=== PATIENT | female | born 1955 ===

== ENCOUNTER → 2019-12-01 | Outpatient (CLI) | payer OTHER ==
[~2019-12-01] VITALS: Ht 170.2 cm; Wt 105.2 kg
[~2019-12-01] MED LIST: APAP650 PO; CARVEDILOL25 MG PO; CYCLOBENZAPRINE5 MG PO; DILTIAZEM 24HR360 M1 PO; GLUCOPHAGE1000 MG PO; GLUCOTROL5 MG PO; HYDROCHLOROTHIA25 M2 PO; HYDROCODON-ACE1 EAC7 PO; LIPITOR 20 MG T20 M1 PO; TRAMADOL 50 MG50 MG PO; ZYLOPRIM300 MG PO
[2019-12-01 14:37] VITALS: BP 147/79
--- NOTE | 2019-12-01 15:08 | NUR ---
Pain Clinic Assessment: 1. History of Osteoarthritis: Not Applicable History of Rheumatoid Arthritis: Not Applicable 2. Height: 5 ft. 7 in. 170.2 cm. Weight: 232.0 lb. oz. 105.235 kg. Patient's BMI: 36.3 3. Vital Signs: BP: 147/79 Pulse: 65 Resp: 14 Temp: 02 Sat: 100 ECG Mon: 4. Pain Intensity: 5 5. Fall Risk: Dizziness: N Needs help standing or walking: N Fallen in the last 3 months: N Fall risk comments: 6. Patient on Blood Thinner: None 7. History of Hypertension: Y 8. Opioid Therapy greater than 6 weeks: Y Opiate Contract Signed: 9. Risk Assessment Tool Provided: 10. Functional Assessment Tool: 11. Recreational Drug Use: Never Drug Type: Tobacco Use: Former Smoker Tobacco Type: Cigarettes Amount or Packs/day: 1/2 How Many Years: Alcohol Use: No Frequency: Quant:
--- NOTE | 2019-12-15 15:46 | HPC ---
[facility] [place] [address] PAIN MANAGEMENT CONSULTATION Name: ROD CARO Room #: REG ALEXIS Head.#: [id number] Admission: 12/01/19 Attend Phys: Joe Whitfield MD Discharge: Date of : 53 Report #: [id number] THIS REPORT FOR: cc: GARY DERAS MD Physician not on staff Joe Whitfield MD ~ CC: MD Joe Butcher Physician staff DATE OF SERVICE: 12/01/2019 CHIEF COMPLAINT: Low back pain for a few years, she has had back pain since . 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 Housework, vacuuming, sweeping, all exacerbate her discomfort. Standing can be problematic as well. She has tried heat as well as rest. She has used tramadol and Flexeril for muscle spasms. She notes that the burning, aching discomfort in her back gets progressively worse the longer she stands. She has difficulty walking greater than a block. Housework for greater than a few minutes is problematic. Notes that her pain somewhat improved with use of medications as well as Tylenol. She rates her pain as a 5/10 today. Pain is generally across the lower portion of her back in the L4-L5 and L5-S1 areas. The patient states she has had physical therapy in the past with no long-term benefits. Denies any new bowel or bladder dysfunction. ALLERGIES: TIFFANIE INHIBITORS CAUSE ANGIOEDEMA. CURRENT MEDICATIONS: Metformin 1000 mg b.i.d., acetaminophen 500 mg 2 capsules t.i.d., Lipitor 20 mg, aspirin 325 mg, tramadol 50 mg 1 tablet as needed t.i.d., nortriptyline 10 mg, diltiazem 240 mg, Januvia 100 mg, hydrochlorothiazide 25 mg, cyclobenzaprine 5 mg, carvedilol 25 mg, allopurinol 300 mg, ibuprofen 400 mg. PAST MEDICAL HISTORY: Type 2 diabetes, hypertension, chronic back pain, gout, cervical cancer, hepatitis C positive in 2013, negative in 2015, did not receive treatment. PAST SURGICAL HISTORY: Knee replacement, left, 2018. Partial hysterectomy, cervical cancer. Still has ovaries. OCCUPATION: Disabled, has not worked for 10 years. REVIEW OF SYSTEMS: Generally good health, recent weight change, fatigue, [address] [address] PAIN MANAGEMENT CONSULTATION Name: ROD CARO Room #: REG [facility].#: [id number] Admission: 12/01/19 Attend Phys: Joe Whitfield MD Discharge: Date of : 53 Report #: [id number] weakness, wears glasses, non-insulin diabetes, excessive thirst, urination. LABORATORY DATA: L-spine 11/16/2019, lumbar spine 3 views. Reason for exam, chronic low back pain. L1 and L2 vertebral bodies are fused with partial obliteration of the disk space and minimal wedge configuration. There is minimal kyphotic angulation at L1-L2. Anterior subluxation of L4 on L5 with 3 mm is present. Remaining disk space height is well maintained. There are severe degenerative changes of the apophyseal joints throughout the lumbar spine. IMPRESSION: 1. 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 2. Grade 1 spondylolisthesis, L4/L5. Severe degenerative changes of the apophyseal joints throughout the lumbar spine. PAIN CLINIC ASSESSMENT AND PQRS: 1. History of osteoarthritis is noted in the patient's back. The patient is not being treated for rheumatoid arthritis. 2. Height 5 feet 7 inches, weight 232 pounds, BMI is 36.3. 3. Vital Signs: Blood pressure 147/79, pulse 65, respiratory rate is 14, room air saturation is 100%. 4. Pain intensity 5/10. 5. Fall history. The patient has not fallen in the last 3 months. 6. Blood thinner. The patient is not on a blood thinning medication. 7. Hypertension. The patient is being treated for hypertension. 8. Opioids greater than 6 weeks. The patient receives medications from her primary physician. 9. Risk assessment tool, low for opioid use. 10. Functional assessment tool, . 11. Recreational drug use: The patient denies. 12. Tobacco. The patient is a former smoker, smokes one-half pack of cigarettes from years. 13. Alcohol. The patient denies frequent use of alcoholic beverages. PHYSICAL EXAMINATION: GENERAL: The patient is a well-developed, well-nourished black female. Appears her stated age. She is alert and oriented x 3. Her affect is appropriate. Speech is fluent. HEENT: Normocephalic, atraumatic. Extraocular eye muscles intact. Sclerae nonicteric. Mucous membranes are moist. The patient is wearing a mask. NECK: Without JVD or adenopathy. HEART: Regular rate. LUNGS: Clear to auscultation. ABDOMEN: Protuberant. EXTREMITIES: Upper extremity muscle strength judged to be 5/5 for the major muscle groups in the upper extremity. The patient without significant [facility] [address] [place] [address] PAIN MANAGEMENT CONSULTATION Name: ROD CARO Room #: REG ALEXIS Melendez#: [id number] Admission: 12/01/19 Attend Phys: Joe Whitfield MD Discharge: Date of : 53 Report #: [id number] scoliosis, kyphosis or lordosis. Lumbar extension, left and right lateral rotation, left and right lateral bending were somewhat limited secondary to the patient's flexibility. She has pain and discomfort in the lower portion of her back. She has pain across the lower portion of the back at the lumbar area. Anterior and posterior spring tests are negative. Straight leg raise was negative. Palpation in the lumbar area near the paraspinous muscle areas cause some increased discomfort. Left and right lateral rotation cause some increased discomfort. Lumbar extension cause some increased low back discomfort. IMPRESSION: 1. Low back pain with arthritis in the apophyseal joints. 2. Type 2 diabetes. 3. Hypertension. 4. Chronic back pain. 5. Gout. 6. Cervical cancer. 7. Hepatitis C positive in 2013, negative in 2016, did not receive treatment. RECOMMENDATIONS: We discussed treatment options with the patient. At this juncture, she would like to continue on a conservative course. A script for hydrocodone 5/325 one p.o. t.i.d. have been written. The patient will note its efficacy. We have explained that opioid medications can be helpful initially. They can lose their efficacy as time goes on because of development of tolerance. We may consider gabapentin use in the future. We would like to thank you for letting us participate in her care. We hope she continues to improve. <ELECTRONICALLY SIGNED> By: Joe Whitfield MD 12/15/19 1546 [id number] MD SAÚL Orourke
== END ==
LOC: PAIN 06:49
PROVIDERS: ATTEND Anesthesiology Pain Medicine
DX: M47.816 Spondylosis without myelopathy or radiculopathy, lumbar region (principal); M43.16 Spondylolisthesis, lumbar region

== ENCOUNTER → 2020-01-26 | Outpatient (CLI) | payer OTHER ==
[~2020-01-26] VITALS: Ht 170.2 cm; Wt 105.1 kg
[~2020-01-26] MED LIST changes: +VOLTAREN GEL 1100 G1 TOP
[2020-01-26 10:56] VITALS: BP 160/91
--- NOTE | 2020-01-26 11:12 | NUR ---
Pain Clinic Assessment: 1. History of Osteoarthritis: Not Applicable History of Rheumatoid Arthritis: Not Applicable 2. Height: 5 ft. 7 in. 170.2 cm. Weight: 231.6 lb. oz. 105.053 kg. Patient's BMI: 36.3 3. Vital Signs: BP: 160/91 Pulse: 76 Resp: 16 Temp: 02 Sat: 99 ECG Mon: 4. Pain Intensity: 5 W/TYLENOL 5. Fall Risk: Dizziness: N Needs help standing or walking: N Fallen in the last 3 months: N Fall risk comments: 6. Patient on Blood Thinner: None 7. History of Hypertension: Y 8. Opioid Therapy greater than 6 weeks: Y Opiate Contract Signed: 9. Risk Assessment Tool Provided: 10. Functional Assessment Tool: 11. Recreational Drug Use: Never Drug Type: Tobacco Use: Former Smoker Tobacco Type: Amount or Packs/day: How Many Years: Alcohol Use: No Frequency: Quant:
--- NOTE | 2020-02-03 13:25 | HPC ---
[facility] [address] [place] [address] PAIN MANAGEMENT CONSULTATION Name: ROD CARO Room #: REG [facility].#: [id number] Admission: 01/26/20 Attend Phys: Joe Whitfield MD Discharge: Date of : 53 Report #: [id number] THIS REPORT FOR: cc: KYLEE DERAS MD Physician not on staff Joe Whitfield MD ~ CC: KYLEE Whitfield Physician staff DATE OF SERVICE: 01/26/2020 PRIMARY CARE PHYSICIAN: Dr. Kylee Deras. CHIEF COMPLAINT: Chronic low back pain. HISTORY: The patient is a 64-year-old female who has been referred to the pain clinic for evaluation. She continues to have pain in the lower portion of her back. The pain radiates down into the heel of her right foot. She continues to have back pain, which has been ongoing for many years since the . She describes it as constant, burning and aching. She rates it as 5/10. Pain is exacerbated with standing, walking, housework particularly sweeping. Notes that her medications as well as heat can be helpful. She has had physical therapy in the past. Denies any long-term benefits from that activity. ALLERGIES: TIFFANIE INHIBITORS CAUSE ANGIOEDEMA. CURRENT MEDICATIONS: Metformin 1000 mg b.i.d., Tylenol 500 mg 2 capsules t.i.d., Lipitor 20 mg, aspirin 325 mg, tramadol 50 mg 1 p.o. t.i.d., nortriptyline 10 mg, diltiazem 240 mg, Januvia 100 mg, hydrochlorothiazide 25 mg, cyclobenzaprine 5 mg, carvedilol 25 mg, allopurinol 300 mg, ibuprofen 400 mg. PAIN CLINIC ASSESSMENT AND PQRS: 1. The patient has osteoarthritic changes noted in her back. She is not being treated for rheumatoid arthritis. 2. Height 5 feet 7 inches, weight 231 pounds, BMI is 36. 3. Vital signs: Blood pressure 160/91, pulse 76, respiratory rate 16, room air saturation 99%. 4. Pain intensity is 5/10. 5. Fall history: The patient has not fallen in the last 3 months. 6. Blood thinner. The patient is not on a blood thinning medication. 7. Hypertension. The patient is being treated for hypertension. 8. Opioid therapy greater than 6 weeks. 9. Risk assessment tool. 10. Functional assessment tool, . [address] [address] PAIN MANAGEMENT CONSULTATION Name: ROD CARO Room #: REG CLI [facility]#: [id number] Admission: 01/26/20 Attend Phys: Joe Whitfield MD Discharge: Date of : 53 Report #: [id number] 11. Recreational drug use. The patient denies. 12. Tobacco: The patient is a former smoker. 13. Alcohol. PHYSICAL EXAMINATION: GENERAL: The patient is a well-developed, well-nourished black female. She appears her stated age. She is alert and oriented x 3. Her affect is appropriate. Speech is fluent. HEENT: Normocephalic, atraumatic. Extraocular eye muscles intact. Sclerae nonicteric. Mucous membranes, the patient is wearing a face cover. NECK: Without adenopathy or JVD. HEART: Regular. LUNGS: Clear to auscultation. ABDOMEN: Protuberant. EXTREMITIES: Upper extremity muscle strength judged to be 5/5 for the major muscle groups in the upper extremity. MUSCULOSKELETAL: The patient is without significant scoliosis, kyphosis or lordosis. The patient notes somewhat limited movement in flexibility in the lumbar area. Left and right lateral bending, left and right lateral rotation were somewhat limited. The patient has discomfort in her back. Complains of pain in the lower portion of her back. Anterior and posterior spring tests were negative. Straight leg raise were negative. Palpation of the lumbar area near the paraspinous muscles cause some increased discomfort. IMPRESSION: 1. Chronic low back pain with arthritis in the apophyseal joints. 2. Type 2 diabetes. 3. Hypertension. 4. Chronic back pain. 5. Gout. 6. Cervical cancer. 7. History of hepatitis C positive in 2013 and negative in 2016, did not receive treatment. RECOMMENDATIONS: We discussed treatment options with the patient. At this point, we will continue with the hydrocodone 5 mg 1 p.o. t.i.d. The patient is aware that opioid medications can become less effective as time goes on. This is because of development of tolerance. We will consider the use of gabapentin as an adjunct in the future. We would like to thank you for letting us participate in her care. <ELECTRONICALLY SIGNED> By: Joe Whitfield MD 02/03/20 1325 [id number] Joe Whitfield MD /PAUL
== END ==
LOC: PAIN 06:53
PROVIDERS: ATTEND Anesthesiology Pain Medicine
DX: C53.9 Malignant neoplasm of cervix uteri, unspecified (principal); G89.29 Other chronic pain; E11.9 Type 2 diabetes mellitus without complications; I10 Essential (primary) hypertension; M10.9 Gout, unspecified; Z86.19 Personal history of other infectious and parasitic diseases; Z88.8 Allergy status to other drugs, medicaments and biological substances; Z79.899 Other long term (current) drug therapy

== ENCOUNTER → 2020-03-29 | Outpatient (CLI) | payer OTHER ==
[~2020-03-29] VITALS: Ht 170.2 cm; Wt 107.1 kg
[~2020-03-29] MED LIST changes: +NORVASC2.5 M1 PO
[2020-03-29 09:27] VITALS: BP 156/78
--- NOTE | 2020-03-29 09:44 | NUR ---
Pain Clinic Assessment: 1. History of Osteoarthritis: Not Applicable History of Rheumatoid Arthritis: Not Applicable 2. Height: 5 ft. 7 in. 170.2 cm. Weight: 236.2 lb. oz. 107.140 kg. Patient's BMI: 37.0 3. Vital Signs: BP: 156/78 Pulse: 86 Resp: 16 Temp: 02 Sat: 100 ECG Mon: 4. Pain Intensity: 6 5. Fall Risk: Dizziness: N Needs help standing or walking: N Fallen in the last 3 months: N Fall risk comments: 6. Patient on Blood Thinner: None 7. History of Hypertension: Y 8. Opioid Therapy greater than 6 weeks: Y Opiate Contract Signed: 9. Risk Assessment Tool Provided: low-2 10. Functional Assessment Tool: 11. Recreational Drug Use: Never Drug Type: Tobacco Use: Former Smoker Tobacco Type: Amount or Packs/day: How Many Years: Alcohol Use: No Frequency: Quant:
--- NOTE | 2020-03-31 08:11 | HPC ---
[facility] [address] [place] [address] PAIN MANAGEMENT CONSULTATION Name: ROD CARO Room #: REG ALEXIS Head.#: [id number] Admission: 03/29/20 Attend Phys: Joe Whitfield MD Discharge: Date of : 53 Report #: [id number] CC: GARY Whitfield Physician staff DATE OF SERVICE: 03/29/2020 CHIEF COMPLAINT: Back pain. HISTORY: The patient is a 64-year-old female who has been followed in the Pain Clinic because of lumbar radicular pain. She has pain that radiates down into her back and foot. She has had ongoing pain for a number of years. It dates back to the . She describes her pain as constant, burning and aching. Rates it as a 5/10. The patient notes walking, doing housework, sweeping and other activities exacerbate her discomfort. She has tried heat as well as she notes improvement when she takes her medications. She has had physical therapy in the past. She ran out of her medications and over the last few days, she has noticed an increase in her pain. ALLERGIES: TIFFANIE INHIBITORS CAUSE ANGIOEDEMA. CURRENT MEDICATIONS: Metformin 1000 mg b.i.d., Tylenol 500 mg 2 tablets t.i.d., Lipitor 20 mg, aspirin 325 mg, tramadol 50 mg t.i.d., nortriptyline 10 mg, diltiazem 240 mg, Januvia 100 mg, hydrochlorothiazide 25 mg, cyclobenzaprine 5 mg, carvedilol 25 mg, allopurinol 300 mg, ibuprofen 400 mg. PAIN CLINIC ASSESSMENT/PQRS: 1. The patient has some osteoarthritic changes in her back. She is not being treated for rheumatoid arthritis. 2. Height 5 feet 7 inches, weight 236 pounds, BMI is 37.0 3. Vital Signs: Blood pressure is 156/78, pulse 86, respiratory rate 16, room air saturation 100%. 4. Pain intensity is 6/10. 5. Fall history: The patient has not fallen in the last 3 months. 6. Blood thinner. The patient is not on a blood thinning medication. 7. Hypertension. The patient is being treated for hypertension. 8. Opioid therapy greater than 6 weeks. The patient receives medication from the Pain Clinic. 9. Risk assessment tool, low for opioid use. 10. Functional assessment tool, . 11. Recreational drug use. The patient denies. 12. Tobacco: The patient is a former smoker. 13. Alcohol. The patient denies use of alcoholic beverages. PHYSICAL EXAMINATION: GENERAL: The patient is a well-developed, well-nourished black female, appears her stated age. She is alert and oriented x 3. Her affect is appropriate. Speech is fluent. HEENT: Normocephalic, atraumatic. Extraocular eye muscles intact. Sclerae nonicteric. The patient is wearing a facial covering. NECK: Without adenopathy or JVD. HEART: Regular rate. LUNGS: Clear. ABDOMEN: Nontender, protuberant. EXTREMITIES: Upper extremity muscle strength is judged to be 5/5 for the major muscle groups in the upper extremity. Lower extremity muscle strength, the patient is without significant scoliosis, kyphosis or lordosis. The patient has decreased movement in flexibility in the lumbar area. Has pain in her right and left lateral side with left and right lateral rotation and bending. The patient complains of pain and discomfort with palpitation in the lumbar area near the paraspinous muscles. IMPRESSION: 1. Chronic low back pain with arthritis in the apophyseal joints. 2. Type 2 diabetes. 3. Hypertension. 4. Chronic back pain. 5. Gout. 6. Cervical cancer. 7. History of hepatitis C positive in 2013, negative in 2016, did not receive treatment. RECOMMENDATIONS: We discussed treatment options with the patient. At this juncture, we will continue with her medications of hydrocodone. The patient found that this medication was beneficial. A script for hydrocodone 5 mg 1 p.o. t.i.d. has been rewritten. The patient will also use diclofenac to the affected area. May consider use of gabapentin in the future. We would like to thank you for letting us participate in her care. We hope she continues to improve. <ELECTRONICALLY SIGNED> By: Joe Whitfield MD 03/31/20 0811 1054 [id number] Joe Whitfield MD /nt
== END ==
LOC: PAIN 06:49
PROVIDERS: ATTEND Anesthesiology Pain Medicine
DX: M54.5 Low back pain (principal); E11.9 Type 2 diabetes mellitus without complications; I10 Essential (primary) hypertension; M10.9 Gout, unspecified; C41.2 Malignant neoplasm of vertebral column; Z86.19 Personal history of other infectious and parasitic diseases; Z88.8 Allergy status to other drugs, medicaments and biological substances; Z79.899 Other long term (current) drug therapy

== ENCOUNTER → 2020-04-26 | Outpatient (CLI) | payer OTHER ==
[~2020-04-26] VITALS: Ht 170.2 cm; Wt 107.0 kg
[2020-04-26 10:02] VITALS: BP 163/70
--- NOTE | 2020-04-26 10:16 | NUR ---
Pain Clinic Assessment: 1. History of Osteoarthritis: Not Applicable History of Rheumatoid Arthritis: Not Applicable 2. Height: 5 ft. 7 in. 170.2 cm. Weight: 236.0 lb. oz. 107.049 kg. Patient's BMI: 37.0 3. Vital Signs: BP: 163/70 Pulse: 80 Resp: 16 Temp: 02 Sat: 100 ECG Mon: 4. Pain Intensity: 5 5. Fall Risk: Dizziness: N Needs help standing or walking: N Fallen in the last 3 months: N Fall risk comments: 6. Patient on Blood Thinner: None 7. History of Hypertension: Y 8. Opioid Therapy greater than 6 weeks: Y Opiate Contract Signed: 9. Risk Assessment Tool Provided: low-2 10. Functional Assessment Tool: 11. Recreational Drug Use: Never Drug Type: Tobacco Use: Former Smoker Tobacco Type: Amount or Packs/day: How Many Years: Alcohol Use: No Frequency: Quant:
--- NOTE | 2020-05-11 14:52 | HPC ---
[facility] [address] [place] [address] PAIN MANAGEMENT CONSULTATION Name: ROD CARO Room #: REG ALEXIS Head.#: [id number] Admission: 04/26/20 Attend Phys: Joe Whitfield MD Discharge: Date of : 53 Report #: [id number] THIS REPORT FOR: cc: GARY DERAS MD Physician not on staff Joe Whitfield MD ~ CC: GARY Whitfield Physician staff DATE OF SERVICE: 04/26/2020 CHIEF COMPLAINT: Low back pain. HISTORY: The patient is a 64-year-old female who has been seen in the pain clinic because of chronic pain and discomfort. She has returned today with pain involving the lower portion of her back. She has found medications helpful. Pain has been problematic for a number of years now. This dates back to the . Describes her pain as a chronic constant, aching and burning. Rates it as a 5/10. Notes that her pain is exacerbated by walking and standing. 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 She has had physical therapy in the past. Notes that her medications, use of heat, rest and sitting can be helpful. She has returned today for renewal of her medications. ALLERGIES: TIFFANIE INHIBITORS CAUSE ANGIOEDEMA. CURRENT MEDICATIONS: Metformin 1000 mg b.i.d., Tylenol 500 mg 2 tablets t.i.d., Lipitor 20 mg, aspirin 325 mg, tramadol 50 mg t.i.d., nortriptyline 10 mg, diltiazem 240 mg, Januvia 100 mg, hydrochlorothiazide 25 mg, cyclobenzaprine 5 mg, carvedilol 25 mg, allopurinol 300 mg, ibuprofen 400 mg. PAIN CLINIC ASSESSMENT AND PQRS: 1. The patient has some osteoarthritic changes in her back. She is not being treated for rheumatoid arthritis. 2. Height 5 feet 7 inches, weight 236 pounds, BMI 37. 3. Vital Signs: Blood pressure 163/70, pulse 80, respiratory rate 16, room air saturation 100%. 4. Pain intensity 10/16. 5. Fall history: The patient has not fallen in the last 3 months. 6. Blood thinner. The patient is not on a blood thinning medication. 7. Hypertension. The patient is being treated for hypertension. 8. Opioids. The patient receives medications greater than 6 weeks. 9. Risk assessment tool, low for opioid use. 10. Functional [place] [address] PAIN MANAGEMENT CONSULTATION Name: ROD CARO Room #: REG [facility]#: [id number] Admission: 04/26/20 Attend Phys: Joe Whitfield MD Discharge: Date of : 53 Report #: [id number] 11. Recreational drug use: The patient denies. 12. Tobacco: The patient is a former smoker. 13. Alcohol. The patient denies use of alcoholic beverages at this juncture. PHYSICAL EXAMINATION: GENERAL: The patient is a well-developed, well-nourished black female, appears her stated age. She is alert and oriented x 3. Her affect is appropriate. Speech is fluent. HEENT: Normocephalic, atraumatic. Extraocular eye muscles intact. Sclerae nonicteric. The patient is wearing a facial covering. NECK: Without adenopathy or JVD. HEART: Regular rate. LUNGS: Clear. ABDOMEN: Nontender and protuberant. EXTREMITIES: Upper extremity muscle strength judged to be 5/5 for the major muscle groups in the upper extremity. The patient has pain and discomfort in lower portion of her back. MUSCULOSKELETAL: The patient without significant scoliosis, kyphosis or lordosis. The patient notes some decreased flexibility in the lumbar area. Notes increased pain with left and right lateral bending. Rotation is problematic. The patient has some pain in the paraspinous muscle area. IMPRESSION: 1. Chronic low back pain with arthritis in the apophyseal joints. 2. Type 2 diabetes. 3. Hypertension. 4. Chronic back pain. 5. Gout. 6. Cervical cancer. 7. History of hepatitis C. Positive in 2014, negative in 2016, did not receive treatment. RECOMMENDATIONS: We discussed treatment options with the patient. At this juncture, we will continue with her medications. A script for hydrocodone 5/325 one p.o. t.i.d. has been provided. The patient also will receive Voltaren gel to place in the affected area 4 times daily. We would like to thank you for letting us participate in her care. We hope she continues to improve. She is aware that opioid medications can become less effective as time goes on because of development of tolerance. She is keeping her medications in a guarded area. She may consider use of gabapentin in the future. [address] [address] PAIN MANAGEMENT CONSULTATION Name: ROD CARO Room #: LUIS ENRIQUE Melendez#: [id number] Admission: 04/26/20 Attend Phys: Joe Whitfield MD Discharge: Date of : 53 Report #: [id number] We would like to thank you for letting us participate in her care. We hope she continues to improve. <ELECTRONICALLY SIGNED> By: Joe Whitfield MD 05/11/20 1452 1033 22 Joe Whitfield MD /[facility]
== END ==
LOC: PAIN 06:49
PROVIDERS: ATTEND Anesthesiology Pain Medicine
DX: C53.9 Malignant neoplasm of cervix uteri, unspecified (principal); M54.5 Low back pain; G89.29 Other chronic pain; E11.9 Type 2 diabetes mellitus without complications; I10 Essential (primary) hypertension; M10.9 Gout, unspecified; Z86.19 Personal history of other infectious and parasitic diseases; Z88.8 Allergy status to other drugs, medicaments and biological substances; Z79.899 Other long term (current) drug therapy

== ENCOUNTER → 2020-05-24 | Outpatient (CLI) | payer OTHER ==
[~2020-05-24] VITALS: Ht 170.2 cm; Wt 108.5 kg
[2020-05-24 09:17] VITALS: BP 130/96
--- NOTE | 2020-05-24 09:33 | NUR ---
Pain Clinic Assessment: 1. History of Osteoarthritis: Not Applicable History of Rheumatoid Arthritis: Not Applicable 2. Height: 5 ft. 7 in. 170.2 cm. Weight: 239.2 lb. oz. 108.501 kg. Patient's BMI: 37.5 3. Vital Signs: BP: 130/96 Pulse: 85 Resp: 16 Temp: 02 Sat: 100 ECG Mon: 4. Pain Intensity: 5 5. Fall Risk: Dizziness: N Needs help standing or walking: N Fallen in the last 3 months: N Fall risk comments: 6. Patient on Blood Thinner: None 7. History of Hypertension: Y 8. Opioid Therapy greater than 6 weeks: Y Opiate Contract Signed: 9. Risk Assessment Tool Provided: low-2 10. Functional Assessment Tool: 11. Recreational Drug Use: Never Drug Type: Tobacco Use: Former Smoker Tobacco Type: Amount or Packs/day: How Many Years: Alcohol Use: No Frequency: Quant:
== END ==
LOC: PAIN 06:53
PROVIDERS: ATTEND Anesthesiology Pain Medicine
DX: G89.29 Other chronic pain (principal); E11.9 Type 2 diabetes mellitus without complications; I10 Essential (primary) hypertension; M10.9 Gout, unspecified; Z85.41 Personal history of malignant neoplasm of cervix uteri; Z86.19 Personal history of other infectious and parasitic diseases

== ENCOUNTER → 2020-06-21 | Outpatient (CLI) | payer OTHER ==
[~2020-06-21] VITALS: Ht 170.2 cm; Wt 109.0 kg
[~2020-06-21] MED LIST changes: +GLIPIZIDE 10 MG10 MG PO
[2020-06-21 09:26] VITALS: BP 152/105
--- NOTE | 2020-06-21 09:50 | NUR ---
Pain Clinic Assessment: 1. History of Osteoarthritis: Not Applicable History of Rheumatoid Arthritis: Not Applicable 2. Height: 5 ft. 7 in. 170.2 cm. Weight: 240.2 lb. oz. 108.954 kg. Patient's BMI: 37.6 3. Vital Signs: BP: 152/105 Pulse: 89 Resp: 20 Temp: 02 Sat: 100 ECG Mon: 4. Pain Intensity: 5 5. Fall Risk: Dizziness: N Needs help standing or walking: N Fallen in the last 3 months: N Fall risk comments: 6. Patient on Blood Thinner: None 7. History of Hypertension: Y 8. Opioid Therapy greater than 6 weeks: Y Opiate Contract Signed: 9. Risk Assessment Tool Provided: low-2 10. Functional Assessment Tool: 11. Recreational Drug Use: Never Drug Type: Tobacco Use: Former Smoker Tobacco Type: Amount or Packs/day: How Many Years: Alcohol Use: No Frequency: Quant:
== END ==
LOC: PAIN 06:49
PROVIDERS: ATTEND Anesthesiology Pain Medicine
DX: M54.5 Low back pain (principal); G89.29 Other chronic pain; E11.9 Type 2 diabetes mellitus without complications; I10 Essential (primary) hypertension; M10.9 Gout, unspecified; C53.9 Malignant neoplasm of cervix uteri, unspecified; Z87.891 Personal history of nicotine dependence

== ENCOUNTER → 2020-07-21 | Outpatient (CLI) | payer OTHER ==
[~2020-07-21] VITALS: Ht 170.2 cm; Wt 111.1 kg
[~2020-07-21] MED LIST changes: +VOLTAREN GEL 1100 GM TOP
[2020-07-21 10:04] VITALS: BP 166/82
--- NOTE | 2020-07-21 10:07 | NUR ---
Pain Clinic Assessment: 1. History of Osteoarthritis: Not Applicable History of Rheumatoid Arthritis: Not Applicable 2. Height: 5 ft. 7 in. 170.2 cm. Weight: 245.0 lb. oz. 111.132 kg. Patient's BMI: 38.4 3. Vital Signs: BP: 166/82 Pulse: 92 Resp: 16 Temp: 02 Sat: 100 ECG Mon: 4. Pain Intensity: 5 5. Fall Risk: Dizziness: N Needs help standing or walking: N Fallen in the last 3 months: N Fall risk comments: 6. Patient on Blood Thinner: None 7. History of Hypertension: Y 8. Opioid Therapy greater than 6 weeks: Y Opiate Contract Signed: 9. Risk Assessment Tool Provided: low-2 10. Functional Assessment Tool: 11. Recreational Drug Use: Never Drug Type: Tobacco Use: Former Smoker Tobacco Type: Amount or Packs/day: How Many Years: Alcohol Use: No Frequency: Quant:
== END ==
LOC: PAIN 09:42
PROVIDERS: ATTEND Anesthesiology Pain Medicine
DX: M40.299 Other kyphosis, site unspecified (principal); M43.16 Spondylolisthesis, lumbar region; M47.816 Spondylosis without myelopathy or radiculopathy, lumbar region; E11.9 Type 2 diabetes mellitus without complications; I10 Essential (primary) hypertension; G89.29 Other chronic pain; M10.9 Gout, unspecified; Z85.41 Personal history of malignant neoplasm of cervix uteri; Z86.19 Personal history of other infectious and parasitic diseases; Z79.899 Other long term (current) drug therapy; Z79.891 Long term (current) use of opiate analgesic

== ENCOUNTER → 2020-08-16 | Outpatient (CLI) | payer OTHER ==
[~2020-08-16] VITALS: Ht 170.2 cm; Wt 110.5 kg
[2020-08-16 09:35] VITALS: BP 148/82
--- NOTE | 2020-08-16 09:42 | NUR ---
Pain Clinic Assessment: 1. History of Osteoarthritis: Not Applicable History of Rheumatoid Arthritis: Not Applicable 2. Height: 5 ft. 7 in. 170.2 cm. Weight: 243.6 lb. oz. 110.496 kg. Patient's BMI: 38.1 3. Vital Signs: BP: 148/82 Pulse: 80 Resp: 20 Temp: 02 Sat: 100 ECG Mon: 4. Pain Intensity: 4 5. Fall Risk: Dizziness: N Needs help standing or walking: N Fallen in the last 3 months: N Fall risk comments: 6. Patient on Blood Thinner: None 7. History of Hypertension: Y 8. Opioid Therapy greater than 6 weeks: Y Opiate Contract Signed: 9. Risk Assessment Tool Provided: low-2 10. Functional Assessment Tool: 11. Recreational Drug Use: Never Drug Type: Tobacco Use: Former Smoker Tobacco Type: Amount or Packs/day: How Many Years: Alcohol Use: No Frequency: Quant:
== END ==
LOC: PAIN 06:46
PROVIDERS: ATTEND Anesthesiology Pain Medicine
DX: M54.5 Low back pain (principal); G89.29 Other chronic pain; E11.9 Type 2 diabetes mellitus without complications; I10 Essential (primary) hypertension; M10.9 Gout, unspecified; C53.9 Malignant neoplasm of cervix uteri, unspecified; Z86.19 Personal history of other infectious and parasitic diseases; Z87.891 Personal history of nicotine dependence; Z88.8 Allergy status to other drugs, medicaments and biological substances; Z79.899 Other long term (current) drug therapy

== ENCOUNTER → 2020-09-15 | Outpatient (CLI) | payer OTHER ==
[~2020-09-15] VITALS: Ht 170.2 cm; Wt 111.0 kg
[2020-09-15 13:21] VITALS: BP 158/81
--- NOTE | 2020-09-15 13:25 | NUR ---
Pain Clinic Assessment: 1. History of Osteoarthritis: Not Applicable History of Rheumatoid Arthritis: Not Applicable 2. Height: 5 ft. 7 in. 170.2 cm. Weight: 244.8 lb. oz. 111.041 kg. Patient's BMI: 38.3 3. Vital Signs: BP: 158/81 Pulse: 81 Resp: 16 Temp: 02 Sat: 100 ECG Mon: 4. Pain Intensity: 4 5. Fall Risk: Dizziness: N Needs help standing or walking: N Fallen in the last 3 months: N Fall risk comments: 6. Patient on Blood Thinner: None 7. History of Hypertension: Y 8. Opioid Therapy greater than 6 weeks: Y Opiate Contract Signed: 9. Risk Assessment Tool Provided: low-2 10. Functional Assessment Tool: 11. Recreational Drug Use: Never Drug Type: Tobacco Use: Former Smoker Tobacco Type: Amount or Packs/day: How Many Years: Alcohol Use: No Frequency: Quant:
== END ==
LOC: PAIN 07:02
PROVIDERS: ATTEND Anesthesiology Pain Medicine
DX: Z76.0 Encounter for issue of repeat prescription (principal); G89.29 Other chronic pain; I10 Essential (primary) hypertension; E11.9 Type 2 diabetes mellitus without complications; M19.90 Unspecified osteoarthritis, unspecified site; M10.9 Gout, unspecified; Z87.891 Personal history of nicotine dependence; Z79.899 Other long term (current) drug therapy; Z85.41 Personal history of malignant neoplasm of cervix uteri; Z86.19 Personal history of other infectious and parasitic diseases

== ENCOUNTER → 2020-10-11 | Outpatient (CLI) | payer OTHER ==
[~2020-10-11] VITALS: Ht 170.2 cm; Wt 109.8 kg
[2020-10-11 09:28] VITALS: BP 164/91
--- NOTE | 2020-10-11 09:29 | NUR ---
Pain Clinic Assessment: 1. History of Osteoarthritis: Not Applicable History of Rheumatoid Arthritis: Not Applicable 2. Height: 5 ft. 7 in. 170.2 cm. Weight: 242.0 lb. oz. 109.771 kg. Patient's BMI: 37.9 3. Vital Signs: BP: 164/91 Pulse: 78 Resp: 14 Temp: 02 Sat: 99 ECG Mon: 4. Pain Intensity: 7 5. Fall Risk: Dizziness: N Needs help standing or walking: N Fallen in the last 3 months: N Fall risk comments: 6. Patient on Blood Thinner: None 7. History of Hypertension: Y 8. Opioid Therapy greater than 6 weeks: Y Opiate Contract Signed: 9. Risk Assessment Tool Provided: low-2 10. Functional Assessment Tool: 11. Recreational Drug Use: Never Drug Type: Tobacco Use: Former Smoker Tobacco Type: Amount or Packs/day: How Many Years: Alcohol Use: No Frequency: Quant:
--- NOTE | 2020-10-12 07:38 | HPC ---
[facility] [address] [place] [address] PAIN MANAGEMENT CONSULTATION Name: ROD CARO Room #: REG [facility].#: [id number] Admission: 10/11/20 Attend Phys: Jaye Montiel Discharge: Date of : 53 Report #: [id number] THIS REPORT FOR: cc: GARY DERAS MD Physician not on staff Jaye Montiel ~ DOC #: [id number] Jaye Montiel NP DATE OF SERVICE: 10/11/2020 CHIEF COMPLAINT: Chronic low back pain. HISTORY OF PRESENT ILLNESS: This is a very pleasant 64-year-old female who returns to the pain clinic for medication renewal. Today the patient is complaining of pain at 7/10, which is slightly higher than normal for her. She reports sleeping wrong last night that has caused increase in her low back pain. She describes her pain today as an aching, burning sensation that is worse with walking and prolonged standing. Overall, she believes her medication regimen is typically as usually helpful in decreasing her pain as well as heat and rest. The patient also reports using Voltaren gel for her osteoarthritic issues and finds it very beneficial on her right heel. The patient denies any constipation as a result of her opioid medications. The patient reports she has taken both COVID vaccine and is very thankful for that. ALLERGIES: TIFFANIE INHIBITORS. CURRENT LIST OF MEDICATIONS: Hydrocodone 5/325 t.i.d., Voltaren gel, glipizide, Norvasc, Coreg, hydrochlorothiazide, atorvastatin, Flexeril, metformin and allopurinol. PQRS: She has osteoarthritic changes in her knee. Denies any rheumatoid arthritis. CONSTITUTIONAL: She is 5 feet 7 inches, weight is 242. BMI is 37.9. VITAL SIGNS: Blood pressure 164/91, pulse is 78, respirations 14, oxygen sat is 99%. Pain score is 7/10. fALL RISK: Denies dizziness, does not need help walking or standing, has not fallen in the last 3 months. The patient is not on any blood thinners, but does take medicine for hypertension. Opioid therapy is greater than 6 weeks. There is an opioid signed contract on her chart. RISK ASSESSMENT TOOL: Low. FUNCTIONAL ASSESSMENT: . RECREATIONAL DRUG USE: She denies. She is a former smoker and does not drink alcohol. According to the prescription monitoring system, the patient is filling in a [facility] [address] [place] [address] PAIN MANAGEMENT CONSULTATION Name: ROD CARO Room #: REG CL[facility]ob Nora#: [id number] Admission: 10/11/20 Attend Phys: Jaye Montiel Discharge: Date of : 53 Report #: [id number] timely fashion. She is due to fill her medications this week. Her morphine mEq according to the CDC guidelines is 15, well below their guidelines. We will collect a random drug screen on this patient at her next visit. PHYSICAL EXAMINATION: GENERAL: This is alert and orientated, well-developed, obese 64-year-old female who appears her stated age, rating her pain score today slightly higher than her average at 7/10. HEENT: Normocephalic, atraumatic. Extraocular eye muscles are intact. Sclerae are nonintrinsic. She is wearing a facial covering. NECK: Without adenopathy or JVD. MUSCULOSKELETAL: The patient is without significant scoliosis, kyphosis, or lordosis. Her upper and lower extremity strength is symmetrical at 5/5. She has tenderness in her left knee. She walks with a slightly antalgic gait. IMPRESSION: 1. Chronic low back pain with osteoarthritis and spondylolisthesis at the L4-L5 level. 2. Type 2 diabetic. 3. Hypertension. 4. Gout. 5. History of cervical cancer. 6. History of hepatitis C. 7. Opioid medication management under scheduled medications and agreement. We reviewed the fact that opiate medications are being used to provide analgesia adequate to support activities of daily living, not attempting to achieve a specific pain score on the 0-10 Visual Analog Scale. The current opiate medications are providing sufficient analgesia to allow the patient to participate in activities of daily living. The patient is not exhibiting any aberrant behavior suggestive of drug diversion. The patient is not having any adverse reactions to medications. The patient is not suffering from daytime somnolence or mental acuity changes. The patient is managing opiate-induced constipation with appropriate [id number] agents and dietary considerations. The patient was counseled on concern for caution with operating a motor vehicle while using opiate medications. PLAN: 1. We discussed treatment options with the patient today. The patient finds her medications very beneficial in helping reduce her pain despite increased today. We will continue her on her current regimen of hydrocodone 5/325, #90. These will be sent electronically by Dr. Whitfield today. 2. We did discuss her Voltaren gel. She reports using it on her right heel. I did explain that she may utilize this on her other arthritic joints of the knees if they flare from time to time. The patient was unaware of that and she reports she will begin using that when her knee is more painful. We do not [address] [address] PAIN MANAGEMENT CONSULTATION Name: ROD CARO Room #: REG ALEXIS Melendez#: [id number] Admission: 10/11/20 Attend Phys: Jaye Montiel Discharge: Date of : 53 Report #: [id number] prescribe that medication for her. 3. We did discuss that she is seeing us on a monthly basis, next month would be the end of her first year. At that time, I explained we may start seeing her every 2 months or [address] Whitfield's recommendation. Her morphine mEq falls below 50. So typically we see those patients on every 3-month basis. Appointment made for 1-month followup prior to discharge. Time spent with the patient in consultation, reviewing recent clinical notes and physician reports, physical exam and correlation of findings and medical documentation to determine possible treatments is 12 minutes. Time spent in preparation for appointment reviewing prescription monitoring system, reviewing previous records and proposed treatment options, reviewing current medications is 5 minutes. Time spent in preparation and sending electronic prescriptions with collaborating physician, Dr. Linus Whitfield and documentation of visit and plan of treatment is 5 minutes. Total time spent 22 minutes. PRETTY Crane/RODRÍGUEZ <ELECTRONICALLY SIGNED> By: Jaye Montiel 10/12/20 [id number] Jaye Montiel /nt
== END ==
LOC: PAIN 08:51
PROVIDERS: ATTEND Clinical Nurse Specialist Adult Health
DX: M43.06 Spondylolysis, lumbar region (principal); E11.9 Type 2 diabetes mellitus without complications; I10 Essential (primary) hypertension; M10.9 Gout, unspecified; F11.20 Opioid dependence, uncomplicated; Z86.19 Personal history of other infectious and parasitic diseases; Z85.41 Personal history of malignant neoplasm of cervix uteri

== ENCOUNTER → 2020-11-08 | Outpatient (CLI) | payer OTHER ==
[~2020-11-08] VITALS: Ht 170.2 cm; Wt 110.4 kg
[~2020-11-08] MED LIST changes: +GLIMEPIRIDE4 MG PO
[2020-11-08 10:52] VITALS: BP 152/97
--- NOTE | 2020-11-08 11:04 | NUR ---
Pain Clinic Assessment: 1. History of Osteoarthritis: Not Applicable History of Rheumatoid Arthritis: Not Applicable 2. Height: 5 ft. 7 in. 170.2 cm. Weight: 243.4 lb. oz. 110.406 kg. Patient's BMI: 38.1 3. Vital Signs: BP: 152/97 Pulse: 73 Resp: 14 Temp: 02 Sat: 100 ECG Mon: 4. Pain Intensity: 5 5. Fall Risk: Dizziness: N Needs help standing or walking: N Fallen in the last 3 months: N Fall risk comments: 6. Patient on Blood Thinner: None 7. History of Hypertension: Y 8. Opioid Therapy greater than 6 weeks: Y Opiate Contract Signed: 9. Risk Assessment Tool Provided: low-2 10. Functional Assessment Tool: 11. Recreational Drug Use: Never Drug Type: Tobacco Use: Former Smoker Tobacco Type: Amount or Packs/day: How Many Years: Alcohol Use: No Frequency: Quant:
== END ==
LOC: PAIN 07:04
PROVIDERS: ATTEND Clinical Nurse Specialist Adult Health
DX: M54.5 Low back pain (principal); G89.29 Other chronic pain; I10 Essential (primary) hypertension; M43.16 Spondylolisthesis, lumbar region; M19.90 Unspecified osteoarthritis, unspecified site; E11.9 Type 2 diabetes mellitus without complications; Z79.891 Long term (current) use of opiate analgesic; Z87.891 Personal history of nicotine dependence; Z79.899 Other long term (current) drug therapy

== ENCOUNTER → 2021-01-05 | Outpatient (CLI) | payer OTHER ==
[~2021-01-05] VITALS: Ht 170.2 cm; Wt 109.7 kg
[2021-01-05 10:12] VITALS: BP 157/78
--- NOTE | 2021-01-05 10:16 | NUR ---
Pain Clinic Assessment: 1. History of Osteoarthritis: knee History of Rheumatoid Arthritis: Not Applicable 2. Height: 5 ft. 7 in. 170.2 cm. Weight: 241.8 lb. oz. 109.680 kg. Patient's BMI: 37.9 3. Vital Signs: BP: 157/78 Pulse: 69 Resp: 16 Temp: 02 Sat: 100 ECG Mon: 4. Pain Intensity: 5 5. Fall Risk: Dizziness: N Needs help standing or walking: N Fallen in the last 3 months: N Fall risk comments: 6. Patient on Blood Thinner: None 7. History of Hypertension: Y 8. Opioid Therapy greater than 6 weeks: Y Opiate Contract Signed: 9. Risk Assessment Tool Provided: low-2 10. Functional Assessment Tool: 11. Recreational Drug Use: Never Drug Type: Tobacco Use: Former Smoker Tobacco Type: Amount or Packs/day: How Many Years: Alcohol Use: No Frequency: Quant:
== END ==
LOC: PAIN 06:52
PROVIDERS: ATTEND Anesthesiology Pain Medicine
DX: Z76.0 Encounter for issue of repeat prescription (principal); M19.90 Unspecified osteoarthritis, unspecified site; E11.9 Type 2 diabetes mellitus without complications; I10 Essential (primary) hypertension; G89.29 Other chronic pain; M10.9 Gout, unspecified; Z86.19 Personal history of other infectious and parasitic diseases; Z79.899 Other long term (current) drug therapy; Z79.891 Long term (current) use of opiate analgesic; Z87.891 Personal history of nicotine dependence; Z56.0 Unemployment, unspecified

== ENCOUNTER → 2021-03-02 | Outpatient (CLI) | payer OTHER ==
[~2021-03-02] VITALS: Ht 170.2 cm; Wt 107.0 kg
[2021-03-02 10:41] VITALS: BP 149/76
--- NOTE | 2021-03-02 10:46 | NUR ---
Pain Clinic Assessment: 1. History of Osteoarthritis: knee History of Rheumatoid Arthritis: Not Applicable 2. Height: 5 ft. 7 in. 170.2 cm. Weight: 235.8 lb. oz. 106.958 kg. Patient's BMI: 36.9 3. Vital Signs: BP: 149/76 Pulse: 76 Resp: 18 Temp: 02 Sat: 99 ECG Mon: 4. Pain Intensity: 5 5. Fall Risk: Dizziness: N Needs help standing or walking: N Fallen in the last 3 months: N Fall risk comments: 6. Patient on Blood Thinner: None 7. History of Hypertension: Y 8. Opioid Therapy greater than 6 weeks: Y Opiate Contract Signed: 9. Risk Assessment Tool Provided: low-2 10. Functional Assessment Tool: 11. Recreational Drug Use: Never Drug Type: Tobacco Use: Former Smoker Tobacco Type: Amount or Packs/day: How Many Years: Alcohol Use: No Frequency: Quant:
== END ==
LOC: PAIN 06:55
PROVIDERS: ATTEND Anesthesiology Pain Medicine
DX: G89.29 Other chronic pain (principal); M54.5 Low back pain; M47.816 Spondylosis without myelopathy or radiculopathy, lumbar region; E11.9 Type 2 diabetes mellitus without complications; I10 Essential (primary) hypertension; M10.9 Gout, unspecified; K75.9 Inflammatory liver disease, unspecified; Z85.41 Personal history of malignant neoplasm of cervix uteri; Z88.8 Allergy status to other drugs, medicaments and biological substances; Z79.899 Other long term (current) drug therapy

== ENCOUNTER → 2021-04-27 | Outpatient (CLI) | payer OTHER ==
[~2021-04-27] VITALS: Ht 170.2 cm; Wt 104.8 kg
[~2021-04-27] MED LIST changes: +VOLTAREN ARTHRI20 GM TOP
[2021-04-27 10:14] VITALS: BP 136/79
--- NOTE | 2021-04-27 10:18 | NUR ---
Pain Clinic Assessment: 1. History of Osteoarthritis: knee History of Rheumatoid Arthritis: Not Applicable 2. Height: 5 ft. 7 in. 170.2 cm. Weight: 231.0 lb. oz. 104.781 kg. Patient's BMI: 36.2 3. Vital Signs: BP: 136/79 Pulse: 81 Resp: 16 Temp: 02 Sat: 100 ECG Mon: 4. Pain Intensity: 4 5. Fall Risk: Dizziness: N Needs help standing or walking: N Fallen in the last 3 months: N Fall risk comments: 6. Patient on Blood Thinner: None 7. History of Hypertension: Y 8. Opioid Therapy greater than 6 weeks: Y Opiate Contract Signed: 9. Risk Assessment Tool Provided: low-2 10. Functional Assessment Tool: 11. Recreational Drug Use: Never Drug Type: Tobacco Use: Former Smoker Tobacco Type: Amount or Packs/day: How Many Years: Alcohol Use: No Frequency: Quant:
== END ==
LOC: PAIN 09:34
PROVIDERS: ATTEND Anesthesiology Pain Medicine
DX: G89.29 Other chronic pain (principal); E11.9 Type 2 diabetes mellitus without complications; I10 Essential (primary) hypertension; M54.50 Low back pain, unspecified; M10.9 Gout, unspecified; M43.16 Spondylolisthesis, lumbar region; M47.816 Spondylosis without myelopathy or radiculopathy, lumbar region; M43.26 Fusion of spine, lumbar region; Z87.891 Personal history of nicotine dependence; Z85.41 Personal history of malignant neoplasm of cervix uteri; Z88.8 Allergy status to other drugs, medicaments and biological substances; Z79.84 Long term (current) use of oral hypoglycemic drugs; Z79.899 Other long term (current) drug therapy

== ENCOUNTER → 2021-06-22 | Outpatient (CLI) | payer OTHER ==
[~2021-06-22] VITALS: Ht 170.2 cm; Wt 103.9 kg
[~2021-06-22] MED LIST changes: +CLONIDINE HCL0.1 M1 PO; +TRAMADOL HCL50 MG PO; +ULTRAM 50MG TAB50 MG PO
[2021-06-22 11:06] VITALS: BP 149/82
--- NOTE | 2021-06-22 11:13 | NUR ---
Pain Clinic Assessment: 1. History of Osteoarthritis: knee History of Rheumatoid Arthritis: Not Applicable 2. Height: 5 ft. 7 in. 170.2 cm. Weight: 229.0 lb. oz. 103.874 kg. Patient's BMI: 35.9 3. Vital Signs: BP: 149/82 Pulse: 77 Resp: 16 Temp: 02 Sat: 100 ECG Mon: 4. Pain Intensity: 5 5. Fall Risk: Dizziness: N Needs help standing or walking: N Fallen in the last 3 months: N Fall risk comments: 6. Patient on Blood Thinner: None 7. History of Hypertension: Y 8. Opioid Therapy greater than 6 weeks: Y Opiate Contract Signed: 9. Risk Assessment Tool Provided: low-2 10. Functional Assessment Tool: 11. Recreational Drug Use: Never Drug Type: Tobacco Use: Former Smoker Tobacco Type: Amount or Packs/day: How Many Years: Alcohol Use: No Frequency: Quant:
== END ==
LOC: PAIN 10:14
PROVIDERS: ATTEND Anesthesiology Pain Medicine
DX: M17.9 Osteoarthritis of knee, unspecified (principal)